=== PATIENT | female | born 1995 | race Caucasian/White ===

== ENCOUNTER 2016-10-05 08:01 | Inpatient (IN) | payer BC, MEDICAID, OTHER ==
[2016-10-05] MEDS ORDERED: Sodium Chloride 0.9% 10 ML Syringe FLUSH PRN (08:37)
[2016-10-05] MEDS ORDERED: Acetaminophen 325 MG Tab PO PRN (08:37)
[2016-10-05] MEDS ORDERED: Ondansetron 4 MG Tab.DIS PO PRN (08:37)
[2016-10-05] MEDS ORDERED: Misoprostol 50 MCG (1/2 of 100 MCG) Tab VAG ONE (09:00)
--- NOTE | 2016-10-05 09:07 | PCM.LDHP ---
L&D History of Present Illness - General Date of Service: 10/05/16 (planned induction) Admit Problem/Dx: Patient Status Order with Admit Dx/Problem 10/05/16 08:37 Patient Status [ADT] Routine Admission Diagnosis/Problem Admission Diagnosis/Problem - planned Source of Information: Patient History Limitations: Reports: No Limitations - History of Present Illness Introduction:: 20 year old who is 40 2/7 planned induction. adequate care. chelsie over the weekend. 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, : 4 Para: 2 LMP (Approximate): (FELI 10/05/16) Other Neuro History: frequent headaches - Infectious Disease History Infectious Disease History: Reports: Chicken Pox Social & Family History - Family History Other Neurological Family History: cousin had brain surgery of some kind Endocrine/Metabolic: Reports: Diabetes, Type I Other Endocrine/Metabolic Family History: mother takes metformin Oncologic: Reports: Brain Other Oncologic Family History: grandmother, grandfather prostate, uncle tumor liver or kidney - Tobacco Use Smoking Status *Q: Never Smoker Second Hand Smoke Exposure: No - Alcohol Use Days Per Week of Alcohol Use: 0 - Recreational Drug Use Recreational Drug Use: No H&P Review of Systems - Review of Systems: Review Of Systems: See Below General: Reports: No Symptoms HEENT: Reports: No Symptoms Pulmonary: Reports: No Symptoms Cardiovascular: Reports: No Symptoms Gastrointestinal: Reports: No Symptoms Genitourinary: Reports: No Symptoms Musculoskeletal: Reports: No Symptoms Skin: Reports: No Symptoms Psychiatric: Reports: No Symptoms Neurological: Reports: No Symptoms Hematologic/Lymphatic: Reports: No Symptoms Immunologic: Reports: No Symptoms L&D Exam - Exam Exam: See Below - Vital Signs Weight: 376 lb 15.847 oz - OB Specific Movement: Active Heart Tones: Present Heart Tones per Min: 140 Heart Rate (FHR) Variability: Moderate (6-25 bmp) Presentation: Vertex Estimated Weight: 6-7 pounds - Ochoa Score Ochoa Score Cervix Position: Midposition Ochoa Score Consistency: Soft Ochoa Score Effacement: >80% Ochoa Score Dilation: 3-4 cm Ochoa Score 's Station: -1 ,0 Ochoa Score Total: 10 - Exam General: Alert, Oriented HEENT: PERRLA, Conjunctiva Clear, EACs Clear, EOMI, Hearing Intact, Mucosa Moist & [place], Nares Patent, Normal Nasal Septum, Posterior Pharynx Clear, TMs Clear Neck: Supple, Trachea Midline Lungs: Clear to Auscultation, Normal Respiratory Effort Cardiovascular: Regular Rate, Regular Rhythm GI/Abdominal Exam: Normal Bowel Sounds, Soft, Non-Tender, No Organomegaly, No Distention, No Abnormal Bruit, No Mass, Pelvis Stable Rectal Exam: Normal Exam, Normal Rectal Tone Genitourinary: Normal external exam, Normal bimanual exam, Normal speculum exam , Cervical dilitation, Enlarged uterus Back Exam: Normal Inspection, Full Range of Motion Extremities: Normal Inspection, Normal Range of Motion, Non-Tender, No Pedal Edema, Normal Capillary Refill Skin: Warm, Dry, Intact Neurological: Cranial Nerves Intact, Reflexes Equal Bilateral Psychiatric: Alert, Normal Affect, Normal Mood - Problem List (1) SNOMED Code(s): 23466895 ICD Code: Z34.90 - ENCNTR FOR SUPRVSN OF NORMAL , UNSP, UNSP TRIMESTER Status: Acute Current Visit: Yes Qualifiers: Weeks of gestation: 40 weeks Qualified Code(s): Z3A.40 - 40 weeks gestation of (2) Short interval between pregnancies complicating , antepartum SNOMED Code(s): 17712199 ICD Code: O09.899 - SUPERVISION OF OTHER HIGH RISK PREGNANCIES, UNSP TRIMESTER Status: Acute Current Visit: Yes Problem List Initiated/Reviewed/Updated: Yes Orders Last 24hrs: Active Orders 24 hr Category Date Time Status Patient Status [ADT] Routine ADT 10/05/16 08:37 Active Antiembolic Devices [RC] .Routine Care 10/05/16 08:40 Active Bedrest Bathroom Privileges [RC] ASDIRECTED Care 10/05/16 08:37 Active Communication Order [RC] ASDIRECTED Care 10/05/16 08:37 Active Heart Tones [RC] PER UNIT ROUTINE Care 10/05/16 08:37 Active Notify Provider Vital Signs [RC] PRN Care 10/05/16 08:37 Active Notify Provider [RC] PRN Care 10/05/16 08:37 Active Up ad Nadege [RC] ASDIRECTED Care 10/05/16 08:37 Active VTE/DVT Education [RC] Click To Edit Care 10/05/16 08:40 Active Vital Signs [RC] PER UNIT ROUTINE Care 10/05/16 08:37 Active Regular Diet [DIET] Diet 10/05/16 Lunch Active CBC W/O DIFF,HEMOGRAM [HEME] Urgent Lab 10/05/16 09:00 Received UA W/MICROSCOPIC [URIN] Urgent Lab 10/05/16 08:37 Uncollected Acetaminophen [Tylenol] Med 10/05/16 08:37 Active 650 mg PO Q4H PRN Ondansetron [Zofran ODT] Med 10/05/16 08:37 Active 4 mg PO Q4H PRN Sodium Chloride 0.9% [Saline Flush] Med 10/05/16 08:37 Active 10 ml FLUSH ASDIRECTED PRN fentaNYL [Sublimaze] Med 10/05/16 08:37 Active 100 mcg IVPUSH Q1H PRN DVT/VTE Prophylaxis Reflex [OM.PC] Routine Oth 10/05/16 08:37 Ordered Saline Lock Insert [OM.PC] Routine Oth 10/05/16 08:37 Ordered Resuscitation Status Routine Resus Stat 10/05/16 08:37 Ordered Medication Orders Acetaminophen (Tylenol) 650 mg PO Q4H PRN PRN Reason: Pain (Mild 1-3) and fever Fentanyl (Sublimaze) 100 mcg IVPUSH Q1H PRN PRN Reason: Pain (moderate 4-6) Ondansetron HCl (Zofran Odt) 4 mg PO Q4H PRN PRN Reason: Nausea/Vomiting Sodium Chloride (Saline Flush) 10 ml FLUSH ASDIRECTED PRN PRN Reason: Keep Vein Open Assessment/Plan Comment:: THis 20 year old 40 2/7 weeks planned induction, CE 3/80/0. Baseline strip cat one Misoprostol placed at 0900 Up and about after required monitoring Planning vaginal delivery Wants to try without epidural
--- NOTE | 2016-10-05 12:25 | PCM.PNLD ---
Labor Progress Note - VS & Meds Vital Signs: Last Vital Signs Temp 97.7 F 10/05/16 08:19 Pulse 93 10/05/16 10:45 Resp 16 10/05/16 10:45 BP 130/80 10/05/16 10:45 Pulse Ox 97 10/05/16 10:45 Active Medications: Current Medications Acetaminophen (Tylenol) 650 mg PO Q4H PRN PRN Reason: Pain (Mild 1-3) and fever Fentanyl (Sublimaze) 100 mcg IVPUSH Q1H PRN PRN Reason: Pain (moderate 4-6) Ondansetron HCl (Zofran Odt) 4 mg PO Q4H PRN PRN Reason: Nausea/Vomiting Sodium Chloride (Saline Flush) 10 ml FLUSH ASDIRECTED PRN PRN Reason: Keep Vein Open Discontinued Medications Misoprostol (Cytotec) 50 mcg VAG ONETIME ONE Stop: 10/05/16 09:01 Last Admin: 10/05/16 08:58 Dose: 50 mcg - Uterine Contractions Uterine Monitoring Mode: External [place] Contraction Frequency (min): 1-2 minutes Contraction Intensity: Mild to Moderate Uterine Resting Tone: Soft - Monitoring Monitor Mode: External Ultrasound Heart Rate (FHR) Baseline: 140 Heart Rate (FHR) Variability: Moderate (6-25 bmp) Accelerations: Present, 15x15 Decelerations: None Strip Review: Category I - Vaginal Exam Dilation (cm): 4 Effacement (Percent): 90 Station: 0 Cervical Position: Anterior Sterile Vaginal Exam Performed By: Marie Kapoor Vaginal Exam Comment: Nice progress since this morning - Labor Progress (Free Text) Labor Progress: AROM later today Planning vaginal delivery pain management per patient request
[2016-10-05] MEDS: fentaNYL 100 MCG/2 ML SDV IVPUSH PRN ×2 (15:48→17:03)
--- NOTE | 2016-10-05 17:11 | PCM.PNLD ---
Labor Progress Note - VS & Meds Vital Signs: Last Vital Signs Temp 97.5 F 10/05/16 11:50 Pulse 100 10/05/16 11:50 Resp 18 10/05/16 11:50 BP 137/73 10/05/16 11:50 Pulse Ox 94 L 10/05/16 11:50 Active Medications: Current Medications Acetaminophen (Tylenol) 650 mg PO Q4H PRN PRN Reason: Pain (Mild 1-3) and fever Fentanyl (Sublimaze) 100 mcg IVPUSH Q1H PRN PRN Reason: Pain (moderate 4-6) Last Admin: 10/05/16 15:48 Dose: 100 mcg Ondansetron HCl (Zofran Odt) 4 mg PO Q4H PRN PRN Reason: Nausea/Vomiting Sodium Chloride (Saline Flush) 10 ml FLUSH ASDIRECTED PRN PRN Reason: Keep Vein Open Discontinued Medications Oxytocin/Sodium Chloride (Pitocin In Ns 20 Units/1,000 Ml) Confirm Administered Dose 20 unit in 1,000 mls @ as directed .ROUTE .STK-MED ONE Stop: 10/05/16 12:48 Misoprostol (Cytotec) 50 mcg VAG ONETIME ONE Stop: 10/05/16 09:01 Last Admin: 10/05/16 08:58 Dose: 50 mcg - Uterine Contractions Uterine Monitoring Mode: External Platter Contraction Frequency (min): 1.5 Contraction Duration (sec): 50-60 Contraction Intensity: Moderate to Strong Uterine Resting Tone: Soft - Monitoring Monitor Mode: External Ultrasound Heart Rate (FHR) Baseline: 140 Heart Rate (FHR) Variability: Moderate (6-25 bmp) Accelerations: Present, 15x15 Decelerations: None Strip Review: Category I - Vaginal Exam Dilation (cm): 7 Effacement (Percent): 100 Station: 1 Cervical Position: Anterior Sterile Vaginal Exam Performed By: Marie Kapoor Vaginal Exam Comment: AROM meconium - Labor Progress (Free Text) Labor Progress: Doing great, up and about walking, tub and ball is now getting second dose of Fentanyl IV /+1, active labor Planning for vaginal delivery
[2016-10-05] MEDS ORDERED: Lidocaine 1% 50 ML MDV ONE (17:17)
[2016-10-05] MEDS ORDERED: Lidocaine 1% 50 ML MDV INJECT ONE (17:17)
[2016-10-05] MEDS ORDERED: ePHEDrine 50 MG/ML SDV ONE (18:33)
[2016-10-05] MEDS ORDERED: Ibuprofen 200 MG Tab, 24 Tab Bulk Bottle PO PRN (19:17)
[2016-10-05] MEDS ORDERED: Benzocaine 20% Top Spray 56 GM Bottle TOP PRN (19:17)
[2016-10-05] MEDS ORDERED: Acetaminophen 325 MG Tab, 50 Tab Bulk Bottle PO PRN (19:17)
[2016-10-05] MEDS ORDERED: Acetaminophen/Codeine 300-30 MG Tab PO PRN (19:17)
[2016-10-05] MEDS ORDERED: Witch Hazel Medicated Pads 100/Jar TOP PRN (19:17)
[2016-10-05] MEDS ORDERED: Lanolin 100% Cream 40 GM Tube TOP PRN (19:17)
--- NOTE | 2016-10-05 19:35 | PCM.DEL ---
L & D Note - General Info Date of Service: 10/05/16 (delivery) Mother's Due Date: 10/03/16 - Delivery Note Labor: Spontaneous Cervical Ripening Method: Misoprostil Delivery Outcome: Livebirth Infant Delivery Method: Spontaneous Vaginal Delivery Delivery Mode: Spontaneous Presentation: Vertex Nuchal Cord: None Anesthesia Type: Local Anesthetic: Lidocaine (Xylocaine) 1% Plain Local Anesthetic Volume: 4cc Amniotic Fluid Description: Meconium Stained Episiotomy Type: None Laceration: 2nd Degree, Perineal Suture type: Vicryl Suture size: 3-0 Placenta: Intact, Spontaneous Cord: 3 Vessels Estimated Blood Loss: 300 Resuscitation Needed: No : Stimulated, Warmed, [place] Used Provider: Marie Kapoor Score 1 min: 8 Score 5 min: 9 Score 10 min: 9 Second Stage Interventions: Reports: Pushing Effectively, Pushing Involuntarily , Pushing, Knee Chest Position Delivery Comments (Free Text/Narrative):: This 20 G4 now P3 who is 40 2/7 delivered a via male at 1840 in MELISSA position. Baby was placed on mother's abdomen where he cried spontaneously. He was dried and stimulated. delayed cord cutting. Three vessel cord. Apgars of 8,9 ,9. all off for color. He has a port wine stain on his back. The placenta was expressed spontaneously intact. Shirley had a second degree perineal tear. 1% lidocaine was used as a local agent 3-0 vicryl was used to repair laceration. No lacerations of the cervix, vagina or rectum were found. EBL 300cc Mother and baby to post and nursery in stable condition. To breast within an hour. weight 7-11 Induction Criteria - Ochoa Score Ochoa Score Dilation: 1-2 cm Ochoa Score Effacement: 60-70% Ochoa Score 's Station: -1 ,0 Ochoa Score Consistency: Soft Ochoa Score Cervix Position: Midposition Ochoa Score Total: 8 Ochoa Score Presenting Part: Reports: Cephalic - Induction Gestational Age >/= 39 wks: Yes Estimated Pelvis: Reports: Adequate Reassuring Monitoring Strip: Yes Absence of Tachy Systole: Yes - General Info Date of Service: 10/05/16 Admission Dx/Problem (Free Text): Patient Status Order with Admit Dx/Problem 10/05/16 08:37 Patient Status [ADT] Routine Admission Diagnosis/Problem Admission Diagnosis/Problem - planned Functional Status: Reports: Pain Controlled - Review of Systems General: Reports: No Symptoms HEENT: Reports: No Symptoms Pulmonary: Reports: No Symptoms Cardiovascular: Reports: No Symptoms Gastrointestinal: Reports: No Symptoms Genitourinary: Reports: No Symptoms Musculoskeletal: Reports: No Symptoms Skin: Reports: No Symptoms Neurological: Reports: No Symptoms Psychiatric: Reports: No Symptoms - Patient Data Vitals - Most Recent: Last Vital Signs Temp 98.4 F 10/05/16 17:10 Pulse 85 10/05/16 17:10 Resp 18 10/05/16 17:10 BP 139/81 10/05/16 17:10 Pulse Ox 94 L 10/05/16 11:50 Weight - Most Recent: 176 lb Lab Results Last 24 Hours: Laboratory Results - last 24 hr 10/05/16 10/05/16 Range/Units 08:37 09:00 WBC 10.1 (4.5-11.0) K/uL RBC 4.58 (3.30-5.50) M/uL Hgb 13.4 (12.0-15.0) g/dL Hct 40.7 (36.0-48.0) % MCV 89 (80-98) fL MCH 29 (27-31) pg MCHC 33 (32-36) % Plt Count 217 (150-400) K/uL Urine Color Yellow Urine Appearance Clear Urine pH 7.0 (4.5-8.0) Ur Specific [place] 1.005 L (1.008-1.030) Urine Protein Negative (NEGATIVE) mg/dL Urine Glucose (UA) Normal (NEGATIVE) mg/dL Urine Ketones Negative (NEGATIVE) mg/dL Urine Occult Blood Negative (NEGATIVE) Urine Nitrite Negative (NEGATIVE) Urine Bilirubin Negative (NEGATIVE) Urine Urobilinogen Normal (NORMAL) mg/dL Ur Leukocyte Esterase Negative (NEGATIVE) Urine RBC Not seen (0-5) Urine WBC Not seen (0-5) Ur Epithelial Cells Not seen Amorphous Sediment Rare Urine Bacteria Not seen Urine Mucus Not seen Med Orders - Current: Current Medications Acetaminophen (Tylenol) 650 mg PO Q4H PRN PRN Reason: Pain (Mild 1-3) and fever Acetaminophen (Tylenol Bulk Bottle) 325 mg PO Q4H PRN PRN Reason: Pain Acetaminophen/Codeine Phosphate (Tylenol With Codeine No.3 300mg/30mg) 1 tab PO Q4H PRN PRN Reason: Pain (moderate 4-6) Benzocaine (Ismt-[id number] 20% [place]) 0 gm TOP Q4H PRN PRN Reason: Perineal Comfort Measure Emollient Ointment (Lansinoh Hpa) 1 gm TOP ASDIRECTED PRN PRN Reason: Sore Nipples Fentanyl (Sublimaze) 100 mcg IVPUSH Q1H PRN PRN Reason: Pain (moderate 4-6) Last Admin: 10/05/16 17:03 Dose: 100 mcg Oxytocin/Sodium Chloride (Pitocin In Ns 20 Units/1,000 Ml) 20 unit in 1,000 mls @ 6 mls/hr IV TITRATE ARAMIS; 2 MUNITS/MIN PRN Reason: Protocol Last Titration: 10/05/16 19:11 Dose: 125 mls/hr Ibuprofen (Motrin Bulk Bottle) 600 mg PO Q6H PRN PRN Reason: Pain Ondansetron HCl (Zofran Odt) 4 mg PO Q4H PRN PRN Reason: Nausea/Vomiting Sodium Chloride (Saline Flush) 10 ml FLUSH ASDIRECTED PRN PRN Reason: Keep Vein Open Witcarly [place] (Tucks) 1 pad TOP ASDIRECTED PRN PRN Reason: Hemorrhoids Discontinued Medications Ephedrine Sulfate (Ephedrine Sulfate) Confirm Administered Dose 50 mg .ROUTE .STK-MED ONE Stop: 10/05/16 18:34 Last Admin: 10/05/16 19:19 Dose: Not Given Oxytocin/Sodium Chloride (Pitocin In Ns 20 Units/1,000 Ml) Confirm Administered Dose 20 unit in 1,000 mls @ as directed .ROUTE .STK-MED ONE Stop: 10/05/16 12:48 Last Admin: 10/05/16 17:21 Dose: Not Given Lidocaine HCl (Xylocaine 1%) Confirm Administered Dose 100 ml .ROUTE .STK-MED ONE Stop: 10/05/16 17:18 Last Admin: 10/05/16 18:48 Dose: 50 ml Misoprostol (Cytotec) 50 mcg VAG ONETIME ONE Stop: 10/05/16 09:01 Last Admin: 10/05/16 08:58 Dose: 50 mcg - Exam General: Alert, Oriented HEENT: Pupils Equal, Pupils Reactive, Mucous Membr. Moist/[place] Neck: Supple Lungs: Clear to Auscultation, Normal Respiratory Effort Cardiovascular: Regular Rate, Regular Rhythm GI/Abdominal Exam: Normal Bowel Sounds, Soft, Non-Tender, No Distention, No Mass , Pelvis Stable (Female) Exam: Enlarged Uterus, Vaginal Bleeding Back Exam: Normal Inspection, Full Range of Motion Extremities: Normal Inspection, Normal Range of Motion, Non-Tender, No Pedal Edema, Normal Capillary Refill Skin: Warm, Dry, Intact Wound/Incisions: Healing Well Neurological: No New Focal Deficit Psy/Mental Status: Alert, Normal Affect, Normal Mood - Problem List & Annotations (1) SNOMED Code(s): 76800297 Code(s): Z34.90 - ENCNTR FOR SUPRVSN OF NORMAL , UNSP, UNSP TRIMESTER Status: Acute Current Visit: Yes Qualifiers: Weeks of gestation: 40 weeks Qualified Code(s): Z3A.40 - 40 weeks gestation of (2) Short interval between pregnancies complicating , antepartum SNOMED Code(s): 65993311 Code(s): O09.899 - SUPERVISION OF OTHER HIGH RISK PREGNANCIES, UNSP TRIMESTER Status: Acute Current Visit: Yes (3) Obstetrical laceration, second degree SNOMED Code(s): 1258382 Code(s): O70.1 - SECOND DEGREE PERINEAL LACERATION DURING DELIVERY Status: Acute Current Visit: Yes (4) Normal vaginal delivery SNOMED Code(s): 76069903 Code(s): O80 - ENCOUNTER FOR FULL-TERM UNCOMPLICATED DELIVERY Status: Acute Current Visit: Yes - Problem List Review Problem List Initiated/Reviewed/Updated: Yes - My Orders Last 24 Hours: My Active Orders 10/05/16 08:37 Bedrest Bathroom Privileges [RC] ASDIRECTED Communication Order [RC] ASDIRECTED Notify Provider Vital Signs [RC] PRN Notify Provider [RC] PRN Up ad Nadege [RC] ASDIRECTED Acetaminophen [Tylenol] 650 mg PO Q4H PRN Ondansetron [Zofran ODT] 4 mg PO Q4H PRN Sodium Chloride 0.9% [Saline Flush] 10 ml FLUSH ASDIRECTED PRN fentaNYL [Sublimaze] 100 mcg IVPUSH Q1H PRN DVT/VTE Prophylaxis Reflex [OM.PC] Routine Saline Lock Insert [OM.PC] Routine Resuscitation Status Routine 10/05/16 08:40 Antiembolic Devices [RC] .Routine VTE/DVT Education [RC] Click to Edit 10/05/16 17:15 Oxytocin/Normal Saline [Pitocin in NS 20 Units/1,000 ML] 20 unit in 1,000 ml IV TITRATE 10/05/16 19:17 Acetaminophen [Tylenol Bulk Bottle] 325 mg PO Q4H PRN Acetaminophen/Codeine [Tylenol with Codeine No.3 300MG/30MG] 1 tab PO Q4H PRN Benzocaine [Jqdb-[id number]-Yuenuuo 20% [place]] See Dose Instructions TOP Q4H PRN Ibuprofen [Motrin Bulk Bottle] 600 mg PO Q6H PRN Lanolin [Lansinoh HPA] 1 gm TOP ASDIRECTED PRN [place] [Tucks] 1 pad TOP ASDIRECTED PRN Assess Lochia [WOMSER] Per Unit Routine Assess Uterine Involution [WOMSER] Per Unit Routine 10/05/16 19:19 Patient Status [ADT] Routine Vital Signs [RC] PFP 10/05/16 19:20 Ice Therapy [OM.PC] Per Unit Routine Sitz Bath [OM.PC] Per Unit Routine 10/05/16 21:00 Docusate Sodium [Colace] 100 mg PO BID 10/05/16 Lunch Regular Diet [DIET] 10/06/16 05:11 CBC WITH AUTO DIFF [HEME] AM - Assessment Assessment:: 10/05/16 20 yr old without complication second degree perineal tear repaired breast feeding GBS neg ABo A pos HIV neg Rubella immune - Plan Plan:: THis 20 year old 40 2/7 weeks planned induction, CE 3/80/0. Baseline strip cat one Misoprostol placed at 0900 Up and about after required monitoring Planning vaginal delivery Wants to try without epidural 10/05/16 Routine cares support breast feeding 24-48 hour stay HGB in am ice to bottom times 24 hours
[2016-10-05] MEDS: Docusate Sodium 100 MG Cap PO SCH (21:32)
--- NOTE | 2016-10-06 08:29 | PCM.PNPP ---
- General Info Date of Service: 10/06/16 (PPD 1 D/C) Admission Dx/Problem (Free Text): Patient Status Order with Admit Dx/Problem 10/05/16 08:37 Patient Status [ADT] Routine Admission Diagnosis/Problem Admission Diagnosis/Problem - planned Functional Status: Reports: Pain Controlled - Review of Systems General: Reports: No Symptoms HEENT: Reports: No Symptoms Pulmonary: Reports: No Symptoms Cardiovascular: Reports: No Symptoms Gastrointestinal: Reports: No Symptoms Genitourinary: Reports: No Symptoms Musculoskeletal: Reports: No Symptoms Skin: Reports: No Symptoms Neurological: Reports: No Symptoms Psychiatric: Reports: No Symptoms - General Info Date of Service: 10/06/16 - Patient Data Vital Signs - Most Recent: Last Vital Signs Temp 98.6 F 10/06/16 02:00 Pulse 87 10/06/16 02:00 Resp 16 10/06/16 02:00 BP 121/66 10/06/16 02:00 Pulse Ox 94 L 10/05/16 11:50 Weight - Most Recent: 176 lb Lab Results - Last 24 Hours: Laboratory Results - last 24 hr 10/05/16 10/05/16 10/06/16 Range/Units 08:37 09:00 05:15 WBC 10.1 12.0 H (4.5-11.0) K/uL RBC 4.58 3.57 (3.30-5.50) M/uL Hgb 13.4 10.6 L D (12.0-15.0) g/dL Hct 40.7 32.0 L (36.0-48.0) % MCV 89 90 (80-98) fL MCH 29 30 (27-31) pg MCHC 33 33 (32-36) % Plt Count 217 162 (150-400) K/uL Neut % (Auto) 78 H (36-66) % Lymph % (Auto) 13 L (24-44) % [place] % (Auto) 9 H (2-6) % Eos % (Auto) 1 L (2-4) % Baso % (Auto) 0 (0-1) % Urine Color Yellow Urine Appearance Clear Urine pH 7.0 (4.5-8.0) Ur Specific [place] 1.005 L (1.008-1.030) Urine Protein Negative (NEGATIVE) mg/dL Urine Glucose (UA) Normal (NEGATIVE) mg/dL Urine Ketones Negative (NEGATIVE) mg/dL Urine Occult Blood Negative (NEGATIVE) Urine Nitrite Negative (NEGATIVE) Urine Bilirubin Negative (NEGATIVE) Urine Urobilinogen Normal (NORMAL) mg/dL Ur Leukocyte Esterase Negative (NEGATIVE) Urine RBC Not seen (0-5) Urine WBC Not seen (0-5) Ur Epithelial Cells Not seen Amorphous Sediment Rare Urine Bacteria Not seen Urine Mucus Not seen Med Orders - Current: Current Medications Acetaminophen (Tylenol) 650 mg PO Q4H PRN PRN Reason: Pain (Mild 1-3) and fever Last Admin: 10/05/16 19:58 Dose: 650 mg Acetaminophen (Tylenol Bulk Bottle) 325 mg PO Q4H PRN PRN Reason: Pain Last Admin: 10/05/16 21:35 Dose: 1 bottle Acetaminophen/Codeine Phosphate (Tylenol With Codeine No.3 300mg/30mg) 1 tab PO Q4H PRN PRN Reason: Pain (moderate 4-6) Benzocaine (Qfcg-G-Zeehusd 20% [place]) 0 gm TOP Q4H PRN PRN Reason: Perineal Comfort Measure Last Admin: 10/05/16 21:36 Dose: 1 bottle Docusate Sodium (Colace) 100 mg PO BID ARAMIS Last Admin: 10/05/16 21:32 Dose: 100 mg Emollient Ointment (Lansinoh Hpa) 1 gm TOP ASDIRECTED PRN PRN Reason: Sore Nipples Fentanyl (Sublimaze) 100 mcg IVPUSH Q1H PRN PRN Reason: Pain (moderate 4-6) Last Admin: 10/05/16 17:03 Dose: 100 mcg Oxytocin/Sodium Chloride (Pitocin In Ns 20 Units/1,000 Ml) 20 unit in 1,000 mls @ 6 mls/hr IV TITRATE ARAMIS; 2 MUNITS/MIN PRN Reason: Protocol Last Titration: 10/05/16 19:11 Dose: 125 mls/hr Ibuprofen (Motrin Bulk Bottle) 600 mg PO Q6H PRN PRN Reason: Pain Last Admin: 10/05/16 21:34 Dose: 1 bottle Ondansetron HCl (Zofran Odt) 4 mg PO Q4H PRN PRN Reason: Nausea/Vomiting Sodium Chloride (Saline Flush) 10 ml FLUSH ASDIRECTED PRN PRN Reason: Keep Vein Open Witch Pao (Tucks) 1 pad TOP ASDIRECTED PRN PRN Reason: Hemorrhoids Last Admin: 10/05/16 21:36 Dose: 1 jar Discontinued Medications Ephedrine Sulfate (Ephedrine Sulfate) Confirm Administered Dose 50 mg .ROUTE .STK-MED ONE Stop: 10/05/16 18:34 Last Admin: 10/05/16 19:19 Dose: Not Given Oxytocin/Sodium Chloride (Pitocin In Ns 20 Units/1,000 Ml) Confirm Administered Dose 20 unit in 1,000 mls @ as directed .ROUTE .STK-MED ONE Stop: 10/05/16 12:48 Last Admin: 10/05/16 17:21 Dose: Not Given Lidocaine HCl (Xylocaine 1%) Confirm Administered Dose 100 ml .ROUTE .STK-MED ONE Stop: 10/05/16 17:18 Last Admin: 10/05/16 18:48 Dose: 50 ml Misoprostol (Cytotec) 50 mcg VAG ONETIME ONE Stop: 10/05/16 09:01 Last Admin: 10/05/16 08:58 Dose: 50 mcg - Interaction Disposition, : in Room with Family Interaction: Holding Infant Feeding: Breastfed Infant; Nursed Well Support Person: - Recovery Exam Fundal Tone: Boggy, Firms with Massage Fundal Level: At Umbilicus Fundal Placement: Midline Lochia Amount: Moderate, Clots/Tissue Present Lochia Color: Rubra/Red Perineum Description: Intact, Minimal Bruising/Swelling, Hemorrhoids Episiotomy/Laceration: Approximated Bladder Status: Palpable Urinary Elimination: Voided - Exam General: Alert, Oriented HEENT: Pupils Equal, Pupils Reactive, Mucous Membr. Moist/[place] Neck: Supple Lungs: Clear to Auscultation, Normal Respiratory Effort Cardiovascular: Regular Rate, Regular Rhythm GI/Abdominal Exam: Soft, Non-Tender Extremities: Normal Inspection, No Pedal Edema Skin: Warm, Dry, Intact Wound/Incisions: Healing Well Neurological: No New Focal Deficit Psy/Mental Status: Alert, Normal Affect, Normal Mood - Problem List & Annotations (1) SNOMED Code(s): 03739151 Code(s): Z34.90 - ENCNTR FOR SUPRVSN OF NORMAL , UNSP, UNSP TRIMESTER Status: Acute Current Visit: Yes Qualifiers: Weeks of gestation: 40 weeks Qualified Code(s): Z3A.40 - 40 weeks gestation of (2) Short interval between pregnancies complicating , antepartum SNOMED Code(s): 20787732 Code(s): O09.899 - SUPERVISION OF OTHER HIGH RISK PREGNANCIES, UNSP TRIMESTER Status: Acute Current Visit: Yes (3) Obstetrical laceration, second degree SNOMED Code(s): 4367530 Code(s): O70.1 - SECOND DEGREE PERINEAL LACERATION DURING DELIVERY Status: Acute Current Visit: Yes (4) Normal vaginal delivery SNOMED Code(s): 94517739 Code(s): O80 - ENCOUNTER FOR FULL-TERM UNCOMPLICATED DELIVERY Status: Acute Current Visit: Yes - Problem List Review Problem List Initiated/Reviewed/Updated: Yes - My Orders Last 24 Hours: My Active Orders 10/05/16 08:37 Bedrest Bathroom Privileges [RC] ASDIRECTED Communication Order [RC] ASDIRECTED Notify Provider Vital Signs [RC] PRN Notify Provider [RC] PRN Up ad Nadege [RC] ASDIRECTED Acetaminophen [Tylenol] 650 mg PO Q4H PRN Ondansetron [Zofran ODT] 4 mg PO Q4H PRN Sodium Chloride 0.9% [Saline Flush] 10 ml FLUSH ASDIRECTED PRN fentaNYL [Sublimaze] 100 mcg IVPUSH Q1H PRN DVT/VTE Prophylaxis Reflex [OM.PC] Routine Saline Lock Insert [OM.PC] Routine Resuscitation Status Routine 10/05/16 08:40 Antiembolic Devices [RC] .Routine VTE/DVT Education [RC] Click to Edit 10/05/16 17:15 Oxytocin/Normal Saline [Pitocin in NS 20 Units/1,000 ML] 20 unit in 1,000 ml IV TITRATE 10/05/16 19:17 Acetaminophen [Tylenol Bulk Bottle] 325 mg PO Q4H PRN Acetaminophen/Codeine [Tylenol with Codeine No.3 300MG/30MG] 1 tab PO Q4H PRN Benzocaine [Hmxw-O-Kxgraop 20% [place]] See Dose Instructions TOP Q4H PRN Ibuprofen [Motrin Bulk Bottle] 600 mg PO Q6H PRN Lanolin [Lansinoh HPA] 1 gm TOP ASDIRECTED PRN Witch Pao [Tucks] 1 pad TOP ASDIRECTED PRN Assess Lochia [WOMSER] Per Unit Routine Assess Uterine Involution [WOMSER] Per Unit Routine 10/05/16 19:19 Patient Status [ADT] Routine Vital Signs [RC] PFP 10/05/16 19:20 Ice Therapy [OM.PC] Per Unit Routine Sitz Bath [OM.PC] Per Unit Routine 10/05/16 21:00 Docusate Sodium [Colace] 100 mg PO BID 10/05/16 Lunch Regular Diet [DIET] - Assessment Assessment:: 10/05/16 20 yr old without complication second degree perineal tear repaired breast feeding GBS neg ABo A pos HIV neg Rubella immune 10/06/16 PPD 1 without complications, doing well without problems Tear no very painful, no hematoma HGB 10.6 - Plan Plan:: THis 20 year old 40 2/7 weeks planned induction, CE 3/80/0. Baseline strip cat one Misoprostol placed at 0900 Up and about after required monitoring Planning vaginal delivery Wants to try without epidural 10/05/16 Routine cares support breast feeding 24-48 hour stay HGB in am ice to bottom times 24 hours 10/06/16 Shirley want to go home today, so discharge this evening is fine See me 6 weeks for a post visit. continue vitamins at home and stool softener
[2016-10-06] MEDS: Docusate Sodium 100 MG Cap PO SCH (08:49)
[2016-10-06 18:23] VITALS: BP 112/69
== END 2016-10-06 19:40 | disposition home or self-care (01) | DRG 560 ==
LOC: JP.OB 08:01 → OBSVTOIN 18:40 → JP.MS 21:27
PROVIDERS: ADMIT Nurse Practitioner Family; ATTEND Nurse Practitioner Family
PROC: 10E0XZZ Delivery of Products of Conception, External Approach (ICD-10-PCS; principal; 2016-10-05)
PROC: 0KQM0ZZ Repair Perineum Muscle, Open Approach (ICD-10-PCS; 2016-10-05)
PROC: 3E0P7GC Introduction of Other Therapeutic Substance into Female Reproductive, Via Natural or Artificial Opening (ICD-10-PCS; 2016-10-05)
PROC: 10907ZC Drainage of Amniotic Fluid, Therapeutic from Products of Conception, Via Natural or Artificial Opening (ICD-10-PCS; 2016-10-05)
DX: O48.0 Post-term pregnancy (principal); O77.0 Labor and delivery complicated by meconium in amniotic fluid; O70.1 Second degree perineal laceration during delivery; Z3A.40 40 weeks gestation of pregnancy; Z37.0 Single live birth
CPT/HCPCS: 36415; 81001; 85025; 85027; A9270-GY; J2590; J3010

== ENCOUNTER 2018-04-10 00:01 | Emergency (ER) | payer BC ==
--- NOTE | 2018-04-10 00:43 | EDM.PDOC ---
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: Other (see below) Other Treatments BULK INTAKE WORKER: none Right Jaw Pain Score (Numeric/FACES): 4 - Related Data Allergies Allergy/AdvReac Type Severity Reaction Status Date / Time No Known Allergies Allergy Verified 04/10/18 00:28 Home Meds: Home Meds NK [No Known Home Meds] 04/10/18 [History] 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: , 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 Neurological History: Reports: Other (See Below) Other Neuro History: frequent headaches - Infectious Disease History Infectious Disease History: Reports: Chicken Pox - Past Surgical History GI Surgical History: Reports: Hernia, Inguinal, Other (See Below) Other GI Surgeries/Procedures: umbilical Musculoskeletal Surgical History: Reports: Other (See Below) Other Musculoskeletal Surgeries/Procedures:: ankle fx Social & Family History - Family History Other Neurological Family History: cousin had brain surgery of some kind Endocrine/Metabolic: Reports: Diabetes, Type I Other Endocrine/Metabolic Family History: mother takes metformin Oncologic: Reports: Brain Other Oncologic Family History: grandmother, grandfather prostate, uncle tumor liver or kidney - Tobacco Use Smoking Status *Q: Never Smoker - Caffeine Use Caffeine Use: Reports: None - Recreational Drug Use Recreational Drug Use: No ED ROS GENERAL - Review of Systems Review Of Systems: See Below Constitutional: Reports: No Symptoms HEENT: Reports: Other (Facial pain and swelling). Denies: Dental Pain, Throat Pain, Throat Swelling Respiratory: Reports: No Symptoms ED EXAM, GENERAL - Physical Exam Exam: See Below Free Text/Narrative:: Examination of the jaw I do appreciate a subtle amount of swelling parotid gland area left side Exam Limited By: No Limitations General Appearance: Alert, WD/WN, No Apparent Distress Ears: Normal External Exam, Normal Canal, Hearing Grossly Normal, Normal TMs Nose: Normal Inspection, Normal Mucosa, No Blood Throat/Mouth: Normal Inspection, Normal Lips, Normal Teeth, Normal Gums, Normal Oropharynx, Normal Voice, No Airway Compromise Head: Atraumatic, Normocephalic Neck: Normal Inspection, Supple, Non-Tender, Full Range of Motion Course - Vital Signs Last Recorded V/S: Last Vital Signs Temp 97.0 F 04/10/18 00:35 Pulse 97 04/10/18 00:35 Resp 12 04/10/18 00:35 BP 132/81 04/10/18 00:35 Pulse Ox 98 04/10/18 00:35 Departure - Departure Time of Disposition: 00:42 Disposition: Home, Self-Care 01 Condition: Fair Clinical Impression: Salivary duct obstruction - Discharge Information Referrals: Marie Kapoor CNM [Primary Care Provider] - Additional Instructions: Try hard candy such as lemon drops, use Tylenol or Motrin as needed for pain control, Please followup with your primary care provider in 3-5 days if not better, please call return to the emergency department with worsening of symptoms. - Assessment/Plan Plan: Assessment Acuity = acute Site and laterality = suspicious for left parotid gland duct blockage Etiology = possibly related to stone Manifestations = pain Location of injury = Home Lab values = none Plan Try hard candies such as lemon drops in combination with nonsteroidal anti- inflammatories follow-up primary care 3-5 days if no improvement This note was dictated using [employer] voice recognition software please call with any questions on syntax or grammar.
[2018-04-10 01:15] VITALS: BP 132/81
== END 2018-04-10 01:01 | disposition home or self-care (01) ==
LOC: JP.ED 00:01
DX: K11.8 Other diseases of salivary glands (principal)
CPT/HCPCS: 99283

== ENCOUNTER 2020-03-05 04:51 | Inpatient (IN) | payer BC, MEDICAID ==
[2020-03-05] MEDS ORDERED: Misoprostol 50 MCG (1/2 of 100 MCG) Tab VAG ONE (07:04)
[2020-03-05] MEDS ORDERED: Sodium Chloride 0.9% 10 ML Syringe FLUSH PRN (07:45)
--- NOTE | 2020-03-05 08:08 | PCM.LDHP ---
L&D History of Present Illness - General Date of Service: 03/11/20 (induction) Admit Problem/Dx: Patient Status Order with Admit Dx/Problem 03/05/20 07:45 Patient Status [ADT] Routine Admission Diagnosis/Problem Admission Diagnosis/Problem Source of Information: Patient History Limitations: Reports: No Limitations - History of Present Illness Introduction:: Shirley is a who is 39 1/7 weeks gestation with a history of poor growth with IUGR. BPP nad NST 12/22 this morning. Cat one strip. 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 : 5 Para: 3 LMP (Approximate): Neurological History: Reports: Other (See Below) Other Neuro History: frequent headaches Hematologic History: Reports: Iron Deficiency - Infectious Disease History Infectious Disease History: Reports: Chicken Pox - Past Surgical History GI Surgical History: Reports: Hernia, Inguinal, Other (See Below) Other GI Surgeries/Procedures: umbilical Musculoskeletal Surgical History: Reports: Other (See Below) Other Musculoskeletal Surgeries/Procedures:: ankle fx Social & Family History - Family History Other Neurological Family History: cousin had brain surgery of some kind Endocrine/Metabolic: Reports: Diabetes, Type I Other Endocrine/Metabolic Family History: mother takes metformin Oncologic: Reports: Brain Other Oncologic Family History: grandmother, grandfather prostate, uncle tumor liver or kidney - Tobacco Use Tobacco Use Status *Q: Never Tobacco User - Caffeine Use Caffeine Use: Reports: None - Recreational Drug Use Recreational Drug Use: No H&P Review of Systems - Review of Systems: Review Of Systems: See Below General: Reports: No Symptoms HEENT: Reports: No Symptoms Pulmonary: Reports: No Symptoms Cardiovascular: Reports: No Symptoms Gastrointestinal: Reports: No Symptoms Genitourinary: Reports: No Symptoms Musculoskeletal: Reports: No Symptoms Skin: Reports: No Symptoms Psychiatric: Reports: No Symptoms Neurological: Reports: No Symptoms Hematologic/Lymphatic: Reports: No Symptoms Immunologic: Reports: No Symptoms L&D Exam - Exam Exam: See Below - Vital Signs Vital Signs: Last Vital Signs Temp 97.3 F 03/05/20 07:37 Pulse 100 03/05/20 07:37 Resp 18 03/05/20 07:37 BP 124/78 03/05/20 07:37 Pulse Ox 98 03/05/20 07:37 Weight: 180 lb - OB Specific Contraction Intensity: Mild Movement: Active Heart Tones: Present Heart Tones per Min: 135 Presentation: Vertex Estimated Weight: 6 pounds - Ochoa Score Ochoa Score Cervix Position: Midposition Ochoa Score Consistency: Soft Ochoa Score Effacement: 51-70% Ochoa Score Dilation: 1-2 cm Ochoa Score Infant's Station: -2 Ochoa Score Total: 7 - Exam General: Alert, Oriented HEENT: PERRLA Neck: Supple Lungs: Normal Respiratory Effort Cardiovascular: Regular Rate GI/Abdominal Exam: Soft Rectal Exam: Normal Rectal Tone Genitourinary: Cervical dilitation, Enlarged uterus, Vaginal discharge Back Exam: Full Range of Motion Extremities: No Pedal Edema, Normal Capillary Refill Skin: Warm Neurological: Cranial Nerves Intact, Reflexes Equal Bilateral Psychiatric: Alert, Normal Affect, Normal Mood - Patient Data Lab Results Last 24 hrs: Laboratory Results - last 24 hr 03/05/20 Range/Units 07:03 WBC 11.0 (4.5-11.0) K/uL RBC 4.54 (3.30-5.50) M/uL Hgb 13.8 D (12.0-15.0) g/dL Hct 40.7 (36.0-48.0) % MCV 90 (80-98) fL MCH 30 (27-31) pg MCHC 34 (32-36) % Plt Count 244 (150-400) K/uL Neut % (Auto) 73 H (36-66) % Lymph % (Auto) 16 L (24-44) % [place] % (Auto) 9 H (2-6) % Eos % (Auto) 2 (2-4) % Baso % (Auto) 1 (0-1) % Result Diagrams: 03/05/20 07:03 - Problem List (1) Encounter for planned induction of labor SNOMED Code(s): 701962041 ICD Code: Z34.90 - ENCNTR FOR SUPRVSN OF NORMAL , UNSP, UNSP TRIMESTER Status: Acute Current Visit: Yes (2) Intrauterine growth restriction (IUGR) affecting care of mother SNOMED Code(s): 652686859 ICD Code: O36.5990 - MATERN CARE FOR OTH OR SUSP POOR FETL GRTH, UNSP TRI, UNSP Status: Acute Current Visit: Yes Qualifiers: Fetus number: single or unspecified fetus (3) SNOMED Code(s): 23005121 ICD Code: Z34.90 - ENCNTR FOR SUPRVSN OF NORMAL , UNSP, UNSP TRIMESTER Status: Acute Current Visit: Yes Qualifiers: Weeks of gestation: 39 weeks Qualified Code(s): Z3A.39 - 39 weeks gestation of Problem List Initiated/Reviewed/Updated: Yes Orders Last 24hrs: Active Orders 24 hr Category Date Time Status Patient Status [ADT] Routine ADT 03/05/20 07:45 Active Antiembolic Devices [RC] .Routine Care 03/05/20 07:52 Active Communication Order [RC] ASDIRECTED Care 03/05/20 07:45 Active Heart Tones [RC] PER UNIT ROUTINE Care 03/05/20 07:45 Active Non Stress Test [RC] Click to Edit Care 03/05/20 07:45 Active Notify Provider Vital Signs [RC] PRN Care 03/05/20 07:45 Active Notify Provider [RC] PRN Care 03/05/20 07:45 Active VTE/DVT Education [RC] Click to Edit Care 03/05/20 07:52 Active Vital Signs [RC] PER UNIT ROUTINE Care 03/05/20 07:45 Active Regular Diet [DIET] Diet 03/05/20 Dinner Active BPP wo NST [US] Routine Exams 03/05/20 07:04 Taken DRUG SCREEN, URINE [URCHEM] Stat Lab 03/05/20 07:04 Ordered UA W/MICROSCOPIC [URIN] Routine Lab 03/05/20 07:03 Ordered Oxytocin/Normal Saline [Pitocin in NS 20 Units/1,000 ML Med 03/05/20 10:00 Active ] 20 unit in 1,000 ml IV ONETIME Sodium Chloride 0.9% [Saline Flush] Med 03/05/20 07:45 Active 10 ml FLUSH ASDIRECTED PRN DVT/VTE Prophylaxis Reflex [OM.PC] Routine Oth 03/05/20 07:45 Ordered Saline Lock Insert [OM.PC] Routine Oth 03/05/20 07:45 Ordered Resuscitation Status Routine Resus Stat 03/05/20 07:45 Ordered Medication Orders Oxytocin/Sodium Chloride (Pitocin In Ns 20 Units/1,000 Ml) 20 unit in 1,000 mls @ 999 mls/hr IV ONETIME ONE; Protocol Stop: 03/05/20 11:00 Sodium Chloride (Saline Flush) 10 ml FLUSH ASDIRECTED PRN PRN Reason: Keep Vein Open Assessment/Plan Comment:: 03/05/20 39 1/7 weeks poor growth BPP and NST this morning 12/22 induction planned CE: 1-2/75/-2 Miso 50 mcg vaginally Plan monitor for labor reassess at noon
--- NOTE | 2020-03-05 09:49 | US ---
BPP wo NST INDICATION: induction COMPARISON: None FINDINGS: Single live IUP heart rate: 136 BPM. Biophysical profile score: 8/8. ANTONIO: 13.6 cm. IMPRESSION: Normal biophysical profile score of 8/8.
--- NOTE | 2020-03-05 12:23 | PCM.PNLD ---
Labor Progress Note - VS & Meds Vital Signs: Last Vital Signs Temp 97.3 F 03/05/20 07:37 Pulse 98 03/05/20 08:45 Resp 18 03/05/20 08:45 BP 120/72 03/05/20 08:45 Pulse Ox 95 03/05/20 08:45 Active Medications: Current Medications Sodium Chloride (Saline Flush) 10 ml FLUSH ASDIRECTED PRN PRN Reason: Keep Vein Open Discontinued Medications Oxytocin/Sodium Chloride (Pitocin In Ns 20 Units/1,000 Ml) 20 unit in 1,000 mls @ 999 mls/hr IV ONETIME ONE; Protocol Stop: 03/05/20 11:00 Misoprostol (Cytotec) 50 mcg VAG ONETIME ONE Stop: 03/05/20 07:05 Last Admin: 03/05/20 07:55 Dose: 50 mcg Documented by: - Uterine Contractions Uterine Monitoring Mode: External [place] Contraction Frequency (min): 1.5-2 Contraction Duration (sec): 50-70 Contraction Intensity: Mild to Moderate Uterine Resting Tone: Soft - Monitoring Monitor Mode: Doppler/Auscultation Heart Rate (FHR) Baseline: 145 Heart Rate (FHR) Variability: Moderate (6-25 bmp) Accelerations: Present, 15x15 Decelerations: None - Vaginal Exam Dilation (cm): 2/3 Effacement (Percent): 80 Station: 0 Cervical Position: Midposition Sterile Vaginal Exam Performed By: Marie Kapoor Vaginal Exam Comment: Nice progress since this morning - Labor Progress (Free Text) Labor Progress: Dante regularly Plan for vaginal delivery later Pain management per patient request
[2020-03-05] MEDS ORDERED: Sodium Chloride 0.9% 500 ML IV ONE (14:22)
[2020-03-05] MEDS ORDERED: fentaNYL 100 MCG/2 ML SDV IVPUSH PRN (14:40)
--- NOTE | 2020-03-05 15:56 | PCM.PNLD ---
Labor Progress Note - VS & Meds Vital Signs: Last Vital Signs Temp 97.3 F 03/05/20 13:52 Pulse 91 03/05/20 13:52 Resp 18 03/05/20 13:52 BP 126/77 03/05/20 13:52 Pulse Ox 96 03/05/20 13:52 Active Medications: Current Medications Fentanyl (Sublimaze) 100 mcg IVPUSH Q1H PRN PRN Reason: pain Last Admin: 03/05/20 14:54 Dose: 100 mcg Documented by: Sodium Chloride (Saline Flush) 10 ml FLUSH ASDIRECTED PRN PRN Reason: Keep Vein Open Discontinued Medications Oxytocin/Sodium Chloride (Pitocin In Ns 20 Units/1,000 Ml) 20 unit in 1,000 mls @ 999 mls/hr IV ONETIME ONE; Protocol Stop: 03/05/20 11:00 Sodium Chloride (Normal Saline) 500 mls @ 500 mls/hr IV .BOLUS ONE Stop: 03/05/20 15:21 Last Admin: 03/05/20 14:25 Dose: 500 mls/hr Documented by: Misoprostol (Cytotec) 50 mcg VAG ONETIME ONE Stop: 03/05/20 07:05 Last Admin: 03/05/20 07:55 Dose: 50 mcg Documented by: - Uterine Contractions Uterine Monitoring Mode: External [place] Contraction Frequency (min): 1-2 Contraction Duration (sec): 60-80 Contraction Intensity: Strong Uterine Resting Tone: Soft - Monitoring Monitor Mode: Doppler/Auscultation Heart Rate (FHR) Baseline: 145 Heart Rate (FHR) Variability: Moderate (6-25 bmp) Accelerations: Present, 15x15 Decelerations: None Strip Review: Category I - Vaginal Exam Dilation (cm): 6-7 Effacement (Percent): 90 Station: 0 Cervical Position: Anterior Sterile Vaginal Exam Performed By: RN Vaginal Exam Comment: rapid cerivcal change since noon. nursing report 6-7 cm - Labor Progress (Free Text) Labor Progress: active labor requesting pain medication leaking meconium stained fluid plan vaginal delivery
[2020-03-05] MEDS ORDERED: Benzocaine 20% Top Spray 56 GM Bottle TOP ONE (16:29)
[2020-03-05] MEDS ORDERED: Hydrocortisone 2.5% Crm 30 GM Tube TOP PRN (16:29)
[2020-03-05] MEDS ORDERED: Acetaminophen 325 MG Tab, 50 Tab Bulk Bottle PO PRN (16:29)
[2020-03-05] MEDS ORDERED: Witch Hazel Medicated Pads 100/Jar TOP ONE (16:29)
[2020-03-05] MEDS ORDERED: Lanolin 100% Cream 40 GM Tube TOP ONE (16:29)
[2020-03-05] MEDS ORDERED: Ibuprofen 200 MG Tab, 24 Tab Bulk Bottle PO PRN (16:29)
--- NOTE | 2020-03-05 16:44 | PCM.DEL ---
L & D Note - General Info Date of Service: 03/05/20 (Childbirth) Mother's Due Date: 03/11/20 - Delivery Note Labor: Spontaneous Cervical Ripening Method: Misoprostil Delivery Outcome: Livebirth Delivery Mode: Spontaneous Presentation: Left Occiput Posterior (LOP) Nuchal Cord: None Anesthesia Type: None Amniotic Fluid Description: Meconium Stained Episiotomy Type: None Laceration: None Placenta: Intact, Spontaneous Cord: 3 Vessels Estimated Blood Loss: 200 Resuscitation Needed: No [place]: Suctioned, Bulb Syringe, Cathether, Stimulated, Warmed, [place] Used, Warmer Used Provider: Marie Kapoor Score 1 min: 8 (color, tone) Score 5 min: 9 (color, deleted 1 ml) Second Stage Interventions: Reports: Encouragement Given, Other (see below) (hands and knees) Delivery Comments (Free Text/Narrative):: This 24 year old G5 now P4 who is 39 1/7 delivered at 1607 a viable male over and intact perineum in LOP position. She delivered hands and knees. The was delivered into my arms, he cried spontaneously. The cord was double clamped and cut and the baby handed to my partner where he was taken to the warmer for further assessment. He was dried and stimulated. Suctioned for 1 ml fluid. Apgars 8 and 9. Color, tone and color with delee. Three vessel cord. Active management of the third stage was done. Mother rolled on to her back and the placenta was delivered spontaneously intact. No lacerations were found. Baby was given to mother skin to skin EBL 200cc Mother and baby to post in stable condition. wt;6-12 first stage 0381-4821 second stage 5846-1028 Third stage 8053-1309 Induction Criteria - Ochoa Score Ochoa Score Dilation: 1-2 cm Ochoa Score Effacement: 60-70% Ochoa Score 's Station: -2 Ochoa Score Consistency: Soft Ochoa Score Cervix Position: Midposition Ochoa Score Total: 7 Ochoa Score Presenting Part: Reports: Cephalic - Induction Gestational Age >/= 39 wks: Yes Estimated Pelvis: Reports: Adequate Reassuring Monitoring Strip: Yes Absence of Tachy Systole: Yes - General Info Date of Service: 03/05/20 Functional Status: Reports: Pain Controlled - Review of Systems General: Reports: No Symptoms HEENT: Reports: No Symptoms Pulmonary: Reports: No Symptoms Cardiovascular: Reports: No Symptoms Gastrointestinal: Reports: No Symptoms Genitourinary: Reports: No Symptoms Musculoskeletal: Reports: No Symptoms Skin: Reports: No Symptoms Neurological: Reports: No Symptoms Psychiatric: Reports: No Symptoms - Patient Data Vitals - Most Recent: Last Vital Signs Temp 97.3 F 03/05/20 13:52 Pulse 91 03/05/20 13:52 Resp 18 03/05/20 13:52 BP 126/77 03/05/20 13:52 Pulse Ox 96 03/05/20 13:52 Weight - Most Recent: 180 lb Lab Results Last 24 Hours: Laboratory Results - last 24 hr 03/05/20 03/05/20 03/05/20 Range/Units 07:03 07:03 07:04 WBC 11.0 (4.5-11.0) K/uL RBC 4.54 (3.30-5.50) M/uL Hgb 13.8 D (12.0-15.0) g/dL Hct 40.7 (36.0-48.0) % MCV 90 (80-98) fL MCH 30 (27-31) pg MCHC 34 (32-36) % Plt Count 244 (150-400) K/uL Neut % (Auto) 73 H (36-66) % Lymph % (Auto) 16 L (24-44) % [place] % (Auto) 9 H (2-6) % Eos % (Auto) 2 (2-4) % Baso % (Auto) 1 (0-1) % Urine Color Yellow (YELLOW) Urine Appearance Clear (CLEAR) Urine pH 7.0 (5.0-8.0) Ur Specific [place] 1.015 (1.008-1.030) Urine Protein Negative (NEGATIVE) mg/dL Urine Glucose (UA) Negative (NEGATIVE) mg/dL Urine Ketones Negative (NEGATIVE) mg/dL Urine Occult Blood Negative (NEGATIVE) Urine Nitrite Negative (NEGATIVE) Urine Bilirubin Negative (NEGATIVE) Urine Urobilinogen 0.2 (0.2-1.0) EU/dL Ur Leukocyte Esterase Negative (NEGATIVE) Urine RBC 0-5 (0-5) Urine WBC 0-5 (0-5) Ur Epithelial Cells Few Amorphous Sediment Not seen Urine Bacteria Not seen Urine Mucus Not seen Urine Opiates Screen Negative (NEGATIVE) Ur Oxycodone Screen Negative (NEGATIVE) Urine Methadone Screen Negative (NEGATIVE) Ur Propoxyphene Screen Negative (NEGATIVE) Ur Barbiturates Screen Negative (NEGATIVE) Ur Tricyclics Screen Negative (NEGATIVE) Ur Phencyclidine Scrn Negative (NEGATIVE) Ur Amphetamine Screen Negative (NEGATIVE) U Methamphetamines Scrn Negative (NEGATIVE) Urine MDMA Screen Negative (NEGATIVE) U Benzodiazepines Scrn Negative (NEGATIVE) U Cocaine Metab Screen Negative (NEGATIVE) U Marijuana (THC) Screen Negative (NEGATIVE) Med Orders - Current: Current Medications Acetaminophen (Tylenol Bulk Bottle) 325 - 650 mg PO Q4H PRN PRN Reason: Pain Emollient Ointment (Lansinoh Hpa) 1 gm TOP ASDIRECTED ONE Stop: 03/05/20 16:30 Fentanyl (Sublimaze) 100 mcg IVPUSH Q1H PRN PRN Reason: pain Last Admin: 03/05/20 14:54 Dose: 100 mcg Documented by: Hydrocortisone (Proctozone-Hc 2.5% Crm) 1 gm TOP ASDIRECTED PRN PRN Reason: Itching Ibuprofen (Motrin Bulk Bottle) 600 mg PO Q6H PRN PRN Reason: Pain Sodium Chloride (Saline Flush) 10 ml FLUSH ASDIRECTED PRN PRN Reason: Keep Vein Open Witch Pao (Tucks) 1 pad TOP ASDIRECTED ONE Stop: 03/05/20 16:30 Discontinued Medications Benzocaine (Nwsg-H-Yrpmvrn 20% [place]) 0 gm TOP Q4H ONE Stop: 03/05/20 16:30 Oxytocin/Sodium Chloride (Pitocin In Ns 20 Units/1,000 Ml) 20 unit in 1,000 mls @ 999 mls/hr IV ONETIME ONE; Protocol Stop: 03/05/20 11:00 Sodium Chloride (Normal Saline) 500 mls @ 500 mls/hr IV .BOLUS ONE Stop: 03/05/20 15:21 Last Admin: 03/05/20 14:25 Dose: 500 mls/hr Documented by: Misoprostol (Cytotec) 50 mcg VAG ONETIME ONE Stop: 03/05/20 07:05 Last Admin: 03/05/20 07:55 Dose: 50 mcg Documented by: - Exam General: Alert, Oriented HEENT: Pupils Equal Neck: Supple Lungs: Normal Respiratory Effort Cardiovascular: Regular Rate, Regular Rhythm GI/Abdominal Exam: Soft, Non-Tender (Female) Exam: Normal External Exam, Cervical Dilatation, Enlarged Uterus, Vaginal Bleeding Back Exam: Full Range of Motion Extremities: No Pedal Edema, Normal Capillary Refill Skin: Warm, Dry Neurological: No New Focal Deficit Psy/Mental Status: Alert, Normal Affect, Normal Mood - Problem List & Annotations (1) Encounter for planned induction of labor SNOMED Code(s): 663105423 Code(s): Z34.90 - ENCNTR FOR SUPRVSN OF NORMAL , UNSP, UNSP TRIMESTER Status: Acute Current Visit: Yes (2) Intrauterine growth restriction (IUGR) affecting care of mother SNOMED Code(s): 289018461 Code(s): O36.5990 - MATERN CARE FOR OTH OR SUSP POOR FETL GRTH, UNSP TRI, UNSP Status: Acute Current Visit: Yes Qualifiers: Fetus number: single or unspecified fetus (3) SNOMED Code(s): 39767832 Code(s): Z34.90 - ENCNTR FOR SUPRVSN OF NORMAL , UNSP, UNSP TRIMESTER Status: Acute Current Visit: Yes Qualifiers: Weeks of gestation: 39 weeks Qualified Code(s): Z3A.39 - 39 weeks gestation of (4) Vaginal delivery SNOMED Code(s): 442151301 Code(s): O80 - ENCOUNTER FOR FULL-TERM UNCOMPLICATED DELIVERY Status: Acute Current Visit: Yes (5) Meconium staining SNOMED Code(s): 024623161 Code(s): P96.83 - MECONIUM STAINING Status: Acute Current Visit: Yes - Problem List Review Problem List Initiated/Reviewed/Updated: Yes - My Orders Last 24 Hours: My Active Orders 03/05/20 07:45 Communication Order [RC] ASDIRECTED Heart Tones [RC] PER UNIT ROUTINE Non Stress Test [RC] Click to Edit Notify Provider Vital Signs [RC] PRN Notify Provider [RC] PRN Vital Signs [RC] PER UNIT ROUTINE Sodium Chloride 0.9% [Saline Flush] 10 ml FLUSH ASDIRECTED PRN DVT/VTE Prophylaxis Reflex [OM.PC] Routine Saline Lock Insert [OM.PC] Routine Resuscitation Status Routine 03/05/20 07:52 Antiembolic Devices [RC] .Routine VTE/DVT Education [RC] Click to Edit 03/05/20 14:40 fentaNYL [Sublimaze] 100 mcg IVPUSH Q1H PRN 03/05/20 15:39 Communication Order [RC] Per Unit Routine Communication Order [RC] Per Unit Routine Communication Order [RC] Per Unit Routine Nitrous Oxide Delivery [RC] ASDIRECTED Oxygen Therapy [RC] ASDIRECTED Pulse Oximetry [RC] ASDIRECTED Verify Patient Consent Obtain [RC] ASDIRECTED 03/05/20 16:29 Patient Status [ADT] Routine Vital Signs [RC] PFP Acetaminophen [Tylenol Bulk Bottle] 325 - 650 mg PO Q4H PRN Hydrocortisone [Proctozone-HC 2.5% Crm] 1 gm TOP ASDIRECTED PRN Ibuprofen [Motrin Bulk Bottle] 600 mg PO Q6H PRN Lanolin [Lansinoh HPA] 1 gm TOP ASDIRECTED ONE witch Pao [Tucks] 1 pad TOP ASDIRECTED ONE 03/05/20 16:30 Ice Therapy [OM.PC] Per Unit Routine Perineal Care [OM.PC] Per Unit Routine Peripheral IV Discontinue [OM.PC] Routine Sitz Bath [OM.PC] Per Unit Routine 03/05/20 Dinner Regular Diet [DIET] 03/06/20 05:11 CBC W/O DIFF,HEMOGRAM [HEME] AM - Assessment Assessment:: 24 year old without complications Male , - Plan Plan:: 03/05/20 39 1/7 weeks poor growth BPP and NST this morning 12/22 induction planned CE: 1-275/-2 Miso 50 mcg vaginally Plan monitor for labor reassess at noon 03/05/20 routine cares 24 hour stay support
[2020-03-06] MEDS ORDERED: Docusate Sodium 100 MG Cap PO PRN (00:38)
--- NOTE | 2020-03-06 08:31 | PCM.PNPP ---
- General Info Date of Service: 03/06/20 (PDD 1) Admission Dx/Problem (Free Text): Patient Status Order with Admit Dx/Problem 03/05/20 07:45 Patient Status [ADT] Routine Admission Diagnosis/Problem Admission Diagnosis/Problem Functional Status: Reports: Pain Controlled - Review of Systems General: Reports: No Symptoms HEENT: Reports: No Symptoms Pulmonary: Reports: No Symptoms Cardiovascular: Reports: No Symptoms Gastrointestinal: Reports: No Symptoms Genitourinary: Reports: No Symptoms Musculoskeletal: Reports: No Symptoms Skin: Reports: No Symptoms Neurological: Reports: No Symptoms Psychiatric: Reports: No Symptoms - General Info Date of Service: 03/06/20 - Patient Data Vital Signs - Most Recent: Last Vital Signs Temp 98.2 F 03/06/20 04:00 Pulse 79 03/06/20 04:00 Resp 18 03/06/20 04:00 BP 118/62 03/06/20 04:00 Pulse Ox 98 03/06/20 04:00 Weight - Most Recent: 180 lb Lab Results - Last 24 Hours: Laboratory Results - last 24 hr 03/05/20 03/06/20 Range/Units 07:03 04:05 WBC 12.6 H (4.5-11.0) K/uL RBC 3.94 (3.30-5.50) M/uL Hgb 11.7 L D (12.0-15.0) g/dL Hct 35.7 L (36.0-48.0) % MCV 91 (80-98) fL MCH 30 (27-31) pg MCHC 33 (32-36) % Plt Count 212 (150-400) K/uL Urine Color Yellow (YELLOW) Urine Appearance Clear (CLEAR) Urine pH 7.0 (5.0-8.0) Ur Specific [place] 1.015 (1.008-1.030) Urine Protein Negative (NEGATIVE) mg/dL Urine Glucose (UA) Negative (NEGATIVE) mg/dL Urine Ketones Negative (NEGATIVE) mg/dL Urine Occult Blood Negative (NEGATIVE) Urine Nitrite Negative (NEGATIVE) Urine Bilirubin Negative (NEGATIVE) Urine Urobilinogen 0.2 (0.2-1.0) EU/dL Ur Leukocyte Esterase Negative (NEGATIVE) Urine RBC 0-5 (0-5) Urine WBC 0-5 (0-5) Ur Epithelial Cells Few Amorphous Sediment Not seen Urine Bacteria Not seen Urine Mucus Not seen Med Orders - Current: Current Medications Acetaminophen (Tylenol Bulk Bottle) 325 - 650 mg PO Q4H PRN PRN Reason: Pain Last Admin: 03/05/20 17:16 Dose: 650 mg Documented by: Docusate Sodium (Colace) 100 mg PO DAILY PRN PRN Reason: Constipation Last Admin: 03/06/20 05:21 Dose: 100 mg Documented by: Fentanyl (Sublimaze) 100 mcg IVPUSH Q1H PRN PRN Reason: pain Last Admin: 03/05/20 14:54 Dose: 100 mcg Documented by: Hydrocortisone (Proctozone-Hc 2.5% Crm) 1 gm TOP ASDIRECTED PRN PRN Reason: Itching Ibuprofen (Motrin Bulk Bottle) 600 mg PO Q6H PRN PRN Reason: Pain Last Admin: 03/05/20 17:15 Dose: 600 mg Documented by: Sodium Chloride (Saline Flush) 10 ml FLUSH ASDIRECTED PRN PRN Reason: Keep Vein Open Discontinued Medications Benzocaine (Rsup-E-Qdqgguw 20% [place]) 0 gm TOP Q4H ONE Stop: 03/05/20 16:30 Last Admin: 03/05/20 17:16 Dose: 1 spray Documented by: Emollient Ointment (Lansinoh Hpa) 1 gm TOP ASDIRECTED ONE Stop: 03/05/20 16:30 Last Admin: 03/05/20 17:16 Dose: 1 gm Documented by: Oxytocin/Sodium Chloride (Pitocin In Ns 20 Units/1,000 Ml) 20 unit in 1,000 mls @ 999 mls/hr IV ONETIME ONE; Protocol Stop: 03/05/20 11:00 Last Admin: 03/05/20 16:08 Dose: 999 mls/hr, 999 mls/hr Documented by: Sodium Chloride (Normal Saline) 500 mls @ 500 mls/hr IV .BOLUS ONE Stop: 03/05/20 15:21 Last Admin: 03/05/20 14:25 Dose: 500 mls/hr Documented by: Misoprostol (Cytotec) 50 mcg VAG ONETIME ONE Stop: 03/05/20 07:05 Last Admin: 03/05/20 07:55 Dose: 50 mcg Documented by: Romeo Leal) 1 pad TOP ASDIRECTED ONE Stop: 03/05/20 16:30 Last Admin: 03/05/20 17:16 Dose: 1 pad Documented by: - Interaction Infant Disposition, : [place] at Bedside Infant Feeding: Breastfed Infant; Nursed Well Support Person: - Recovery Exam Fundal Tone: Firm Fundal Level: At Umbilicus Fundal Placement: Midline Lochia Amount: Moderate Lochia Color: [place]/Red Perineum Description: Intact, Minimal Bruising/Swelling Episiotomy/Laceration: None Bladder Status: Nonpalpable Urinary Elimination: Voided - Exam General: Alert, Oriented HEENT: Pupils Equal, Pupils Reactive Neck: Supple Lungs: Normal Respiratory Effort Cardiovascular: Regular Rate, Regular Rhythm GI/Abdominal Exam: Soft Extremities: No Pedal Edema, Normal Capillary Refill Skin: Warm, Dry, Intact Wound/Incisions: Healing Well Psy/Mental Status: Alert, Normal Affect, Normal Mood - Problem List & Annotations (1) Encounter for planned induction of labor SNOMED Code(s): 203679384 Code(s): Z34.90 - ENCNTR FOR SUPRVSN OF NORMAL , UNSP, UNSP TRIMESTER Status: Acute Current Visit: Yes (2) Intrauterine growth restriction (IUGR) affecting care of mother SNOMED Code(s): 443943656 Code(s): O36.5990 - MATERN CARE FOR OTH OR SUSP POOR FETL GRTH, UNSP TRI, UNSP Status: Acute Current Visit: Yes Qualifiers: Fetus number: single or unspecified fetus (3) SNOMED Code(s): 36893121 Code(s): Z34.90 - ENCNTR FOR SUPRVSN OF NORMAL , UNSP, UNSP TRIMESTER Status: Acute Current Visit: Yes Qualifiers: Weeks of gestation: 39 weeks Qualified Code(s): Z3A.39 - 39 weeks gestation of (4) Vaginal delivery SNOMED Code(s): 020413749 Code(s): O80 - ENCOUNTER FOR FULL-TERM UNCOMPLICATED DELIVERY Status: Acute Current Visit: Yes (5) Meconium staining SNOMED Code(s): 404124123 Code(s): P96.83 - MECONIUM STAINING Status: Acute Current Visit: Yes - Problem List Review Problem List Initiated/Reviewed/Updated: Yes - My Orders Last 24 Hours: My Active Orders 03/05/20 07:45 Notify Provider Vital Signs [RC] PRN Vital Signs [RC] PER UNIT ROUTINE Sodium Chloride 0.9% [Saline Flush] 10 ml FLUSH ASDIRECTED PRN DVT/VTE Prophylaxis Reflex [OM.PC] Routine Saline Lock Insert [OM.PC] Routine Resuscitation Status Routine 03/05/20 14:40 fentaNYL [Sublimaze] 100 mcg IVPUSH Q1H PRN 03/05/20 16:29 Patient Status [ADT] Routine Acetaminophen [Tylenol Bulk Bottle] 325 - 650 mg PO Q4H PRN Hydrocortisone [Proctozone-HC 2.5% Crm] 1 gm TOP ASDIRECTED PRN Ibuprofen [Motrin Bulk Bottle] 600 mg PO Q6H PRN 03/05/20 16:30 Ice Therapy [OM.PC] Per Unit Routine Perineal Care [OM.PC] Per Unit Routine Peripheral IV Discontinue [OM.PC] Routine Sitz Bath [OM.PC] Per Unit Routine 03/05/20 Dinner Regular Diet [DIET] 03/06/20 00:38 Docusate Sodium [Colace] 100 mg PO DAILY PRN - Assessment Assessment:: 24 year old without complications Male infant, 03/06/22 Feels great going well voiding some cramping, flow light hgb 11.7 - Plan Plan:: 03/05/20 39 1/7 weeks poor growth BPP and NST this morning 12/22 induction planned CE: 1-2/-2 Miso 50 mcg vaginally Plan monitor for labor reassess at noon 03/05/20 routine cares 24 hour stay support 03/06/20 HOme today see me 6 weeks for post visit
[2020-03-06 08:40] VITALS: BP 129/78; PULSE 110
[2020-03-06] MEDS ORDERED: Measles, Mumps & Rubella Vaccine 0.5 ML SDV SUBCUT ONE (08:57)
== END 2020-03-06 09:30 | disposition home or self-care (01) | DRG 560 ==
LOC: JP.OB 07:01 → OBSVTOIN 16:24 → JP.OB 16:24 → JP.MS 16:27
PROVIDERS: ADMIT Nurse Practitioner Family; ATTEND Advanced Practice Midwife
PROC: 10E0XZZ Delivery of Products of Conception, External Approach (ICD-10-PCS; principal; 2020-03-05)
PROC: 3E0P7VZ Introduction of Hormone into Female Reproductive, Via Natural or Artificial Opening (ICD-10-PCS; 2020-03-05)
PROC: 3E0234Z Introduction of Serum, Toxoid and Vaccine into Muscle, Percutaneous Approach (ICD-10-PCS; 2020-03-06)
DX: O36.5930 Maternal care for other known or suspected poor fetal growth, third trimester, not applicable or unspecified (principal); Z3A.39 39 weeks gestation of pregnancy; Z37.0 Single live birth; O77.0 Labor and delivery complicated by meconium in amniotic fluid; Z23 Encounter for immunization
CPT/HCPCS: 36415; 59409; 76819; 76819-26; 80305-QW; 81001; 85025; 85027; 90707; 99211; A9270-GY; J2590; J3010; J7040